=== PATIENT | female | born 1945 | race Caucasian/White ===

== ENCOUNTER 2018-11-02 13:05 | Inpatient (IN) | payer MEDICARE, MEDICAID ==
--- NOTE | 2018-11-02 13:52 | ED Physician Chart ---
ED Chief Complaint/HPI - Patient Information Date Seen:: 11/02/18 Time Seen:: 13:39 Chief Complaint:: PSYCHOSIS History of Present Illness:: THIS IS A 73 YO FEMALE SENT FROM THE [facility] FOR EVALUATION AND TREATMENT WITH A NEED FOR PSYCH CARE. Vitals:: Vital Signs - 8 hr 11/02/18 13:19 Temp 98.4 F HR 90 RR 16 BP 124/54 O2 Sat % 95 Historian:: Medical Records Review:: Nurse's Note Reviewed, Transfer documents Reviewed ED Review of Systems - Review of Systems General/Constitutional: No fever, No chills, No weight loss, No weakness, No diaphoresis, No edema, No loss of appetite, Other (THIS PATIENT IS UNABLE TO GIVE A REVIEW OF SYSTEMS.) Skin: No skin lesions, No rash, No bruising Head: No headache, No light-headedness Eyes: No loss of vision, No pain, No diplopia ENT: No earache, No nasal drainage, No sore throat, No tinnitus Neck: No neck pain, No swelling, No thyromegaly, No stiffness, No mass noted Cardio Vascular: No chest pain, No palpitations, No PND, No orthopnea, No edema Pulmonary: No SOB, No cough, No sputum, No wheezing GI: No nausea, No vomiting, No diarrhea, No pain, No melena, No hematochezia, No constipation, No hematemesis G/U: No dysuria, No frequency, No hematuria Musculoskeletal: No bone or joint pain, No back pain, No muscle pain Endocrine: No polyuria, No polydipsia Psychiatric: No prior psych history, No depression, No anxiety, No suicidal ideation Hematopoietic: No bruising, No lymphadenopathy Allergic/Immuno: No urticaria, No angioedema Neurological: No syncope, No focal symptoms, No weakness, No paresthesia, No headache, No seizure, No dizziness, No confusion, No vertigo ED Past Medical History - Past Medical History Obtainable: Yes Past Medical History: Dementia Family History: None Social History: Non Smoker, No Alcohol, No Drug Use, Care Facility Surgical History: None Psychiatricy History: Schizophrenia, Dementia Family Medical History - Family Member Mother History Unknown: Yes ED Physical Exam - Physical Examination General/Constitutional: Awake, Well-developed, well-nourished, Alert, No distress, GCS 15, Non-toxic appearing, Ambulatory Head: Atraumatic Eyes: Lids, conjuctiva normal, PERRL, EOMI Skin: Nl inspection, No rash, No skin lesions, No ecchymosis, Well hydrated, No lymphadenopathy ENMT: External ears, nose nl, Nasal exam nl, Lips, teeth, gums nl Neck: Nontender, Full ROM w/o pain, No JVD, No nuchal rigidity, No bruit, No mass, No stridor Respiratory: Nl effort/Exclusion, Clear to Auscultation, No Wheeze/Rhonchi/Rales Cardio Vascular: RRR, No murmur, gallop, rubs, NL S1 S2 GI: No tenderness/rebounding/guarding, No organomegaly, No hernia, Normal BS's, Nondistended, No mass/bruits, No McBurney tenderness : No CVA tenderness Extremities: No tenderness or effusion, Full ROM, normal strength in all extremities, No edema, Normal digits & nails Neuro/Psych: Alert/oriented, DTR's symmetric, Normal sensory exam, Normal motor strength, Judgement/insight normal (POOR INSIGHT AND JUDGEMENT), Mood normal, Normal gait, No focal deficits Misc: Normal back, No paraspinal tenderness ED Labs/Radiology/EKG Results - Lab Results Results: Laboratory Results - last 24 hr 11/02/18 11/02/18 11/02/18 13:35 13:35 13:35 WBC 8.7 RBC 3.72 L Hgb 11.5 L Hct 35.0 L MCV 93.9 MCH 30.8 MCHC Differential 32.8 RDW 12.9 Plt Count 173 MPV 7.8 Neutrophils % 67.5 Lymphocytes % 19.1 L Monocytes % 10.4 H Eosinophils % 2.3 Basophils % 0.7 PT 12.1 H INR 1.17 Sodium 137 Potassium 4.5 Chloride 104 Carbon Dioxide 24.2 Anion Gap 13.3 BUN 42 H Creatinine 1.4 H Est GFR ( Amer) TNP Est GFR (Non-Af Amer) TNP BUN/Creatinine Ratio 30.0 Glucose 95 Calcium 9.1 Total Bilirubin 0.3 AST 22 ALT 14 Alkaline Phosphatase 68 Troponin I Total Protein 6.3 Albumin 3.8 Globulin 2.5 Albumin/Globulin Ratio 1.5 11/02/18 13:35 WBC RBC Hgb Hct MCV MCH MCHC Differential RDW Plt Count MPV Neutrophils % Lymphocytes % Monocytes % Eosinophils % Basophils % PT INR Sodium Potassium Chloride Carbon Dioxide Anion Gap BUN Creatinine Est GFR ( Amer) Est GFR (Non-Af Amer) BUN/Creatinine Ratio Glucose Calcium Total Bilirubin AST ALT Alkaline Phosphatase Troponin I 0.02 Total Protein Albumin Globulin Albumin/Globulin Ratio - Radiology Results Results: CHEST X-RAY = NAD - EKG Interpretations EKG Time:: 13:39 Rate & Rhythm: RATE = 71, Cook: RIGHT AXIS ED Assessment - Assessment General Assessment: PSYCHOSIS ED Septic Shock - . Is Septic Shock (SBP<90, OR Lactate>4 mmol\L) present?: No - <6hrs of presentation: Vital Signs: Vital Signs - 8 hr 12/15/18 13:19 Temp 98.4 F HR 90 RR 16 BP 124/54 O2 Sat % 95 ED Reassessment (Disposition) - Reassessment Reassessment Condition:: Unchanged - Diagnosis Diagnosis:: PSYCHOSIS - Patient Disposition Discharge/Transfer:: Acute Care w/in this hosp Admitting Medical Physician:: Felicita Barnett Admitting Psych Physician:: Santy Griggs Condition at Disposition:: Stable
[2018-11-02 13:56] LABS: % BASOPHILS 0.7 % (0.0-2.0); % EOSINOPHILS 2.3 % (0.0-5.0); % LYMPHOCYTES 19.1 % (20.0-50.0); % MONOCYTES 10.4 % (2.0-10.0); % NEUTROPHILS 67.5 % (40.0-80.0); BASOPHILE ABSOLUTE 0.1 Th/cumm (0-0.2); EOSINOPHILE ABSOLUTE 0.2 Th/cmm (0.1-0.4); HEMOGLOBIN 11.5 gm/dL (12-16); LYMPHOCYTE ABSOLUTE 1.7 Th/cmm (1.5-3.0); MEAN CELL VOLUME 93.9 fl (81-100); MEAN CORPUSCULAR HEMOGLOBIN 30.8 pg (27.0-31.0); MEAN CORPUSCULAR HGB CONC 32.8 pg (28.0-36.0); MEAN PLATELET VOLUME 7.8 fl; MONOCYTE ABSOLUTE 0.9 Th/cmm (0.3-1.0); NEUTROPHILE ABSOLUTE 5.8 Th/cmm (1.8-8.0); PLATELET COUNT 173 Th/cmm (150-400); RED BLOOD COUNT 3.72 Mil/cmm (3.80-5.20); RED CELL DISTRIBUTION WIDTH 12.9 % (11.5-20.0); WHITE BLOOD COUNT 8.7 Th/cmm (4.8-10.8)
[2018-11-02 14:10] LABS: INR 1.17 (0.5-1.4); PROTHROMBIN TIME (TEST) 12.1 SECONDS (9.5-11.5)
[2018-11-02 14:16] LABS: ALB/GLOB RATIO 1.5 (1.0-1.8); ALBUMIN 3.8 gm/dL (3.7-5.3); ALKALINE PHOSPHATASE 68 U/L (34-104); ANION GAP 13.3 (7.0-16.0); BILIRUBIN,TOTAL 0.3 mg/dL (0.3-1.0); BUN - UREA NITROGEN 42 mg/dL (7-25); CALCIUM SERUM 9.1 mg/dL (8.6-10.3); CARBON DIOXIDE 24.2 mEq/L (21.0-31.0); CHLORIDE 104 mEq/L (98-107); CREATININE - SERUM 1.4 mg/dL (0.6-1.2); GLUCOSE 95 mg/dL (70-105); POTASSIUM SERUM 4.5 mEq/L (3.5-5.1); SGOT 22 U/L (13-39); SGPT/ALT 14 U/L (7-52); SODIUM SERUM 137 mEq/L (136-145); TOTAL PROTEIN,SERUM 6.3 gm/dL (6.0-8.3)
[2018-11-02] MEDS ORDERED: Magnesium Hydroxide (MOM) 30 mL UDC PO PRN (16:01)
[2018-11-02] MEDS ORDERED: Maalox 30 mL Cup PO PRN (16:01)
[2018-11-02 16:47] LABS: CHOLESTEROL 135 mg/dL (<200); HDL -HIGH DENSITY LIPOPROTEIN 50 mg/dL (23-92); TRIGLYCERIDES 118 mg/dL (<150)
--- NOTE | 2018-11-02 17:58 | History & Physical ---
ADMIT DATE: 11/02/2018 CHIEF COMPLAINT: Psychosis. HISTORY OF PRESENT ILLNESS: The patient is a 73-year-old female with a past medical history of possible dementia, psychosis, schizophrenia, brought in from nursing facility for psychosis. The patient was admitted under Dr. Barnett and I was told to do H and P. Otherwise, no new symptoms. PAST MEDICAL HISTORY: Include history of hypertension, hyperlipidemia, schizoaffective disorder, and dementia. FAMILY HISTORY: Not known. SOCIAL HISTORY: No history of smoking. No history of alcohol, no history of drug use. Lives at care facility. ALLERGIES: NKDA. MEDICATIONS: As per medication reconciliation sheet. The patient is receiving Lipitor 10 mg p.o. daily, celecoxib 200 mg p.o. daily, divalproex sodium. REVIEW OF SYSTEMS: GENERAL: The patient has no fever, no chills. HEAD, EYES, EARS, NOSE, AND THROAT: No diplopia, no photophobia. RESPIRATORY: No cough, no shortness of breath. CARDIOVASCULAR: No chest pain or palpitation. GASTROINTESTINAL: No nausea, vomiting or diarrhea. GENITOURINARY: The patient complained of heartburns. Epigastric pain on and off. RESPIRATORY: No dysuria. NEUROLOGIC: No headache, no dizziness, no focal weakness. PSYCHIATRIC: The patient has no suicidal ideation. PHYSICAL EXAMINATION: VITAL SIGNS: Shows temperature is 98 degrees Fahrenheit, pulse 102, respiration is 20, blood pressure 98/58, oxygen saturation 97%. GENERAL: The patient is comfortable lying in the bed, not in acute distress. HEAD, EYES, EARS, NOSE, AND THROAT: Head is normocephalic, atraumatic. Oral cavity moist, pink tongue. Eyes: No pallor, no icterus. PERRLA, EOMI. NECK: Supple, no JVD, no bruit. Trachea in midline. CHEST: Bilateral breath sounds. No crackles, no wheezing. HEART: S1, S2 within normal limits. Regular rhythm. No murmur or gallop. ABDOMEN: Soft, nontender, nondistended. Bowel sounds present. EXTREMITIES: No cyanosis, no clubbing, no edema. NEUROLOGICAL: Alert, awake, oriented x3. LABORATORY DATA: Current lab shows WBC count is 8700, hemoglobin 9.5, hematocrit is 35.0, and platelets are 178,000. INR 1.17, sodium 137, potassium 4.5, chloride 104, bicarbonate is 24, BUN is 42, and creatinine 1.4, glucose is 95. IMPRESSION: 1. Gastroesophageal reflux disease, and may have gastritis. 2. Psychosis. 3. Hypertension. 4. Hyperlipidemia. Recommend check a lipid profile and continue home medications. 5. Azotemia. RECOMMENDATIONS: Start home medication, Protonix or Prevacid orally. [facility]# [id number] [facility]
[2018-11-02] MEDS: Atorvastatin Calcium 10 MG TAB PO SCH (20:46)
[2018-11-03] MEDS: Pantoprazole 40 mg/Packet PO SCH (07:01)
[2018-11-03] MEDS ORDERED: Non-Formulary Item 1 EA (Sertraline Hcl [Zoloft] 100 MG) PO SCH (09:00)
[2018-11-03] MEDS: Multivitamin Tab PO SCH (09:16)
--- NOTE | 2018-11-03 09:59 | Diagnostic Imaging Report ---
CHEST X-RAY: AP view INDICATION: Cough COMPARISON: None FINDINGS: Chronic lung changes are noted with no focal consolidation or effusions. There is nodularity of the left mid lung zone measuring up to 6 mm. Heart size is normal. Atherosclerosis is noted. Degenerative changes are noted with mild scoliosis. IMPRESSION: No focal consolidation identified Nodularity of the left midlung zone measuring up to 6 mm. These findings may represent granulomas. Correlation with old exams is recommended. Alternatively, if no old exams are available, follow-up CT chest is recommended for further assessment Atherosclerotic vascular disease.
[2018-11-03] MEDS: Atorvastatin Calcium 10 MG TAB PO SCH (20:00)
--- NOTE | 2018-11-03 21:10 | Psychiatric Evaluation ---
DATE OF SERVICE: 11/02/2018 IDENTIFYING DATA: The patient is a 73-year-old woman, resident of [facility]. Information obtained by directly interviewing the patient as well as reviewing the admission papers and they are reliable. JUSTIFICATION OF HOSPITALIZATION: The patient is admitted here on a voluntary basis in view of her acute psychosis and mood swings. CHIEF COMPLAINT: "I am seeing things which are not true." HISTORY OF PRESENT ILLNESS: This is the first psychiatric hospitalization to [facility] for this patient who is reported to have been screaming and yelling and has been getting easily agitated. Prior to the hospitalization, the patient has been on Zoloft, Seroquel, Ativan, and the patient is reported to have not been responding to these and the patient has been trying to AWOL from the facility and hence the patient has been to be brought over here for stabilization. PAST PSYCHIATRIC HISTORY: Details are not known. MEDICAL HISTORY: Physical examination is requested to be done by Dr. Barnett. SUBSTANCE ABUSE HISTORY: None. PHYSICAL OR SEXUAL ABUSE HISTORY: None. LEGAL PROBLEMS: None at this time. MENTAL STATUS EXAMINATION: The patient is a 73-year-old woman looking her stated age, moderately obese, superficially cooperative. Eye contact is noted to be fair. Mood is noted to be irritable. Affect is constricted. The patient is paranoid. The patient is actively responding to internal stimuli. The patient is noted to be impulsive and has been trying to walk out of the facility. The patient's attention span and concentration are noted to be poor. The patient has short-term memory deficits, but long-term memory seems to be fair. The patient has no insight into her illness and the patient is not able to anticipate the outcomes of her impulsive behavior. The patient, however, is willing to comply with the treatment. The patient's behavior is a clear danger to self at this time. DIAGNOSTIC IMPRESSION: AXIS I: Schizoaffective disorder. AXIS II: None. AXIS III: As per Dr. Barnett. IMMEDIATE TREATMENT PLAN: The patient is going to be observed on the inpatient unit, provided with supportive psychotherapy. The patient is going to be continued with the valproic acid, which the patient has been getting 250 mg twice a day and the patient is going to be continued on the Seroquel at 100 mg twice a day. With these medications, the patient is going to be observed and once stabilized, the patient is going to be discharged to self to be followed up on an outpatient basis. [facility]# [id number]
--- NOTE | 2018-11-04 02:24 | Progress Notes ---
DATE: 11/03/2018 SUBJECTIVE: The patient lying in the bed. Not in acute distress. No fever, no chills. OBJECTIVE: VITAL SIGNS: Current vital signs shows temperature is 98 degrees Fahrenheit, pulse 64, respirations 19, blood pressure 137/60. GENERAL: The patient is comfortable lying in bed, not in acute distress. HEENT: Head is normocephalic, atraumatic. Oral cavity moist, pink tongue. NECK: Supple. No NVD. No bruit. Trachea in midline. CHEST: Bilateral breath sounds. No crackles or wheezing. HEART: S1, S2 within normal limits. Regular rhythm. No murmur, no gallop. ABDOMEN: Soft, nontender, nondistended. Bowel sounds present. EXTREMITIES: No cyanosis, no clubbing, no edema. NEUROLOGIC: Alert, awake. CURRENT LABORATORY DATA: Shows WBC count 8700, hemoglobin 11.5, platelets are 173,000. Creatinine 1.4. Chest x-ray showed nodularity of the left mid lung measuring up to [address] scan of the chest were recommended. IMPRESSION: 1. Agitation. 2. Gastroesophageal reflux disease. 3. Psychosis. 4. Hypertension. 5. Hyperlipidemia. 6. Azotemia. 7. Lung nodule. PLAN: CT scan of chest JOB# [id number] MTDD
[2018-11-04] MEDS: Pantoprazole 40 mg/Packet PO SCH (06:39)
[2018-11-04] MEDS: Multivitamin Tab PO SCH (09:44)
--- NOTE | 2018-11-04 14:13 | Diagnostic Imaging Report ---
CT scan of the chest without intravenous contrast HISTORY: Mass. Total DLP equals 285 CTDI equals 7.6 Axial sections were obtained from a level above the clavicles down to level below the diaphragm. The overall heart size appears normal. Severe coronary artery and atherosclerotic vascular calcification noted. Normal-sized lymph nodes are seen within the mediastinum. Evaluation of the hilar structures limited due to the absence of intravenous contrast. No definite abnormal masses. No pleural fluid. No abnormal pulmonary parenchymal processes are seen. Specifically, no abnormal pulmonary nodules are identified. Limited sections below the diaphragm demonstrates an approximate 6.0 cm suprarenal mass with several punctate calcifications. This may be related to the right adrenal gland. Neoplasm cannot be excluded. A dedicated CT scan of the abdomen with intravenous contrast and adrenal protocol recommended for further assessment and evaluation. Degenerative changes seen through the spine. IMPRESSION: 1. No abnormal pulmonary masses 2. Approximate 6.0 cm right suprarenal mass. This may be related the adrenal gland. Neoplasm cannot be excluded. A dedicated CT scan of the abdomen with and without intravenous contrast (renal protocol) recommended for further assessment and evaluation. 3. Evidence of severe coronary artery and atherosclerotic vascular disease
--- NOTE | 2018-11-04 19:11 | Consultation ---
DATE OF CONSULTATION: 11/04/2018 REFERRING PHYSICIAN: Rafiq Lombardi M.D. TYPE OF CONSULTATION: Psychology. HISTORY OF PRESENT ILLNESS: The patient is a 73-year-old female. The patient is a resident of [facility]. The following is by record review and by the patient's self-report. The patient is being admitted due to acute psychosis as well as increased mood swings and mood fluctuation. Upon interview, the patient states that she believes she sees things that are not true or are not real. The staff at the patient's facility report of the patient having screaming and yelling episodes as well as getting easily agitated. The patient denied any suicidal ideation or any homicidal ideation, plan or intention. PAST MEDICAL HISTORY: Please see history and physical by Dr. Barnett. PAST PSYCHIATRIC HISTORY: Records are unavailable. Details are unknown. SUBSTANCE ABUSE HISTORY: The patient did not answer these questions. PSYCHOSOCIAL HISTORY: The patient did not answer questions about occupational or educational history or denominational affiliation. The patient did not answer questions about any history of physical or sexual abuse or current legal problems. The patient states no family involved in her care. However, records indicate otherwise. MENTAL STATUS EXAMINATION: The patient appears to be her stated age. The patient's attitude is superficially cooperative. Eye contact is fair. Speech is spontaneous. The patient appears to be moderately obese. Mood is irritable. Affect is constricted. Thought process is highly distractible. The patient appears to be responding to internal stimuli. There is some evidence of paranoid ideation. The patient did not answer questions about having suicidal ideation, plans or intentions. The patient's behavior has been difficult to redirect on the unit. Impulse control is poor. The patient has been trying to walk out of the facility. Concentration is poor. Immediate and short term memory appeared to be impaired. Long-term memory seems to be grossly intact. The patient did not participate in interpretation of proverbs. Sensorium is alert and oriented to person and place. The patient seems not to have any insight into her illness. The patient was unable to verbally contract for safety. Insight is impaired. Judgment is impaired. DIAGNOSTIC IMPRESSION: AXIS I: Schizoaffective disorder. AXIS II: Deferred. AXIS III: Per Dr. Barnett. TREATMENT PLAN: The patient has been seen by Dr. Lombardi for psychiatric evaluation and for the management of the patient's psychotropic medications. We will provide supportive psychotherapy to include reality orientation, differentiation and integration. We will provide a de-escalation to assist in reducing the patient's mood instability and fluctuations. We will provide cognitive and behavioral redirection to assist the patient in increasing her impulse control. We will encourage the patient to demonstrate emotional and self-regulation prior to her discharge. We will provide daily opportunities for the patient to verbally contract for safety. We will provide coping strategies for phase of life issues as well as for chronic severe mental illness. We will continue to provide supportive therapy throughout the patient's hospital stay. Thank you, Dr. Lombardi for this consult and the opportunity to participate in this patient's care. JOB# [id number] MTDDorcas
[2018-11-04] MEDS: Atorvastatin Calcium 10 MG TAB PO SCH (20:08)
--- NOTE | 2018-11-05 00:09 | Progress Notes ---
DATE: 11/04/2018 PSYCHIATRIC PROGRESS NOTE SUBJECTIVE: Staff was spoken to. The patient is interviewed. Mood is noted to be irritable. Affect is constricted. Coping skills are noted to be still poor. The patient continues to be very paranoid. The patient is getting easily agitated. Currently, the patient is on Seroquel 100 mg twice a day and has been able to tolerate the medication. The patient is also on Depakote for her acute mood swings. ASSESSMENT: The patient is still impulsive. PLAN: To continue the patient with the supportive therapy, encouraged the patient to verbalize the concerns rather than to act out. JOB# [id number]
[2018-11-05] MEDS: Pantoprazole 40 mg/Packet PO SCH (06:49)
[2018-11-05] MEDS: Multivitamin Tab PO SCH (08:45)
[2018-11-05] MEDS: Atorvastatin Calcium 10 MG TAB PO SCH (20:31)
--- NOTE | 2018-11-06 01:51 | Progress Notes ---
DATE: 11/05/2018 SUBJECTIVE: Staff was spoken to. The patient is interviewed. Mood is noted to be irritable. Affect is constricted. Insight and judgment at this time are noted to be still impaired. Impulse control is noted to be poor. Coping skills are noted to be very poor. The patient has been having difficult time to cope with the stress, continues to be very paranoid. The patient is currently on Seroquel 100 mg twice a day. The patient's hemoglobin and hematocrit are coming low and the patient's BUN and creatinine are noted to be high creatinine at 1.4 and BUN at 42. ASSESSMENT: The patient is still paranoid. PLAN: To continue the patient with supportive therapy, encouraged the patient to verbalize the concerns rather than to act out. JOB# [id number]
--- NOTE | 2018-11-06 04:16 | Progress Notes ---
DATE: 11/05/2018 SUBJECTIVE: The patient lying in the bed. Not in acute distress. No fever, no chills. OBJECTIVE: VITAL SIGNS: Shows temperature is 97.6, pulse 71, respirations 20, blood pressure 137/64. GENERAL: The patient is comfortable lying in the bed, not in acute distress. HEENT: Head is normocephalic, atraumatic. Oral cavity moist, pink tongue. Eyes: No pallor, no icterus. Pupils PERRLA, EOMI. NECK: Supple, no JVD, no carotid bruit. Trachea in midline. CHEST: Bilateral breath sounds. No crackles or wheezing. HEART: S1, S2 within normal limits. Regular rhythm. No murmur, no gallop. ABDOMEN: Soft, nontender, nondistended. Bowel sounds present. EXTREMITIES: No cyanosis, no clubbing, no edema. NEUROLOGIC: Alert, awake, oriented x 3. No focal deficit. LABORATORY DATA: Current lab shows WBC count is 8700. CT scan of the chest suggested no active lung disease. There is 6 cm right ____ directed. Neoplasm cannot be excluded. CT scan was recommended. ASSESSMENT: 1. Renal mass. 2. Agitation. 3. Gastroesophageal reflux disease. 4. Psychosis. 5. Hypertension. 6. Hyperlipidemia. 7. Azotemia. RECOMMENDATION: Check CT scan of the abdomen and pelvis. JOB# [id number]
[2018-11-06] MEDS: Pantoprazole 40 mg/Packet PO SCH (06:32)
[2018-11-06] MEDS: Multivitamin Tab PO SCH (08:55)
[2018-11-06 12:19] LABS: ALB/GLOB RATIO 1.6 (1.0-1.8); ALBUMIN 3.8 gm/dL (3.7-5.3); ALKALINE PHOSPHATASE 72 U/L (34-104); ANION GAP 12.5 (7.0-16.0); BILIRUBIN,TOTAL 0.3 mg/dL (0.3-1.0); BUN - UREA NITROGEN 44 mg/dL (7-25); CALCIUM SERUM 9.3 mg/dL (8.6-10.3); CARBON DIOXIDE 26.2 mEq/L (21.0-31.0); CHLORIDE 104 mEq/L (98-107); GLUCOSE 101 mg/dL (70-105); POTASSIUM SERUM 4.7 mEq/L (3.5-5.1); SGOT 18 U/L (13-39); SGPT/ALT 11 U/L (7-52); SODIUM SERUM 138 mEq/L (136-145); TOTAL PROTEIN,SERUM 6.2 gm/dL (6.0-8.3)
--- NOTE | 2018-11-06 14:26 | Infectious Disease Prog Note ---
Infectious Disease Subjective - Review of Systems Service Date: 11/06/18 Subjective: There is no new change, no fever. Infectious Disease Objective - Results Result Diagrams: 11/02/18 13:35 11/06/18 11:38 Recent Labs: Laboratory Last Values WBC 8.7 Th/cmm (4.8-10.8) 11/02/18 13:35 RBC 3.72 Mil/cmm (3.80-5.20) L 11/02/18 13:35 Hgb 11.5 gm/dL (12-16) L 11/02/18 13:35 Hct 35.0 % (41.0-60) L 11/02/18 13:35 MCV 93.9 fl (81-100) 11/02/18 13:35 MCH 30.8 pg (27.0-31.0) 11/02/18 13:35 MCHC Differential 32.8 pg (28.0-36.0) 11/02/18 13:35 RDW 12.9 % (11.5-20.0) 11/02/18 13:35 Plt Count 173 Th/cmm (150-400) 11/02/18 13:35 MPV 7.8 fl 11/02/18 13:35 Neutrophils % 67.5 % (40.0-80.0) 11/02/18 13:35 Lymphocytes % 19.1 % (20.0-50.0) L 11/02/18 13:35 Monocytes % 10.4 % (2.0-10.0) H 11/02/18 13:35 Eosinophils % 2.3 % (0.0-5.0) 11/02/18 13:35 Basophils % 0.7 % (0.0-2.0) 11/02/18 13:35 PT 12.1 SECONDS (9.5-11.5) H 11/02/18 13:35 INR 1.17 (0.5-1.4) 11/02/18 13:35 Sodium 138 mEq/L (136-145) 11/06/18 11:38 Potassium 4.7 mEq/L (3.5-5.1) 11/06/18 11:38 Chloride 104 mEq/L (98-107) 11/06/18 11:38 Carbon Dioxide 26.2 mEq/L (21.0-31.0) 11/06/18 11:38 Anion Gap 12.5 (7.0-16.0) 11/06/18 11:38 BUN 44 mg/dL (7-25) H 11/06/18 11:38 Creatinine 1.0 mg/dL (0.6-1.2) 11/06/18 11:38 Est GFR ( Amer) TNP 11/06/18 11:38 Est GFR (Non-Af Amer) TNP 11/06/18 11:38 BUN/Creatinine Ratio 44.0 11/06/18 11:38 Glucose 101 mg/dL (70-105) 11/06/18 11:38 Calcium 9.3 mg/dL (8.6-10.3) 11/06/18 11:38 Total Bilirubin 0.3 mg/dL (0.3-1.0) 11/06/18 11:38 AST 18 U/L (13-39) 11/06/18 11:38 ALT 11 U/L (7-52) 11/06/18 11:38 Alkaline Phosphatase 72 U/L (34-104) 11/06/18 11:38 Troponin I 0.02 ng/mL (0.01-0.05) 11/02/18 13:35 Total Protein 6.2 gm/dL (6.0-8.3) 11/06/18 11:38 Albumin 3.8 gm/dL (3.7-5.3) 11/06/18 11:38 Globulin 2.4 gm/dL 11/06/18 11:38 Albumin/Globulin Ratio 1.6 (1.0-1.8) 11/06/18 11:38 Triglycerides 118 mg/dL (<150) 11/02/18 16:04 Cholesterol 135 mg/dL (<200) 11/02/18 16:04 LDL Cholesterol Direct 62 mg/dL (75-193) L 11/02/18 16:04 HDL Cholesterol 50 mg/dL (23-92) 11/02/18 16:04 Vitamin B12 623 pg/mL (232-1245) 11/04/18 06:40 TSH 2.05 uIU/ml (0.34-5.60) 11/02/18 13:35 RPR NONREACTIVE (NONREACTIVE) 12/17/18 06:40 HIV 1&2 Antibody Screen Non Reactive (Non Reactive) 11/04/18 06:40 - Physical Exam Vitals and I&O: Vital Signs Temp 97.6 F 11/05/18 16:15 Pulse 60 11/06/18 08:52 Resp 20 11/05/18 16:15 BP 123/58 11/06/18 08:52 Pulse Ox 95 11/05/18 16:15 Active Medications: Current Medications Acetaminophen (Tylenol) 650 mg PO Q4HR PRN PRN Reason: Mild Pain / Temp above 100 Stop: 01/01/19 16:00 Al Hydrox/Mg Hydrox/Simethicone (Maalox) 30 ml PO Q4HR PRN PRN Reason: GI DISTRESS Stop: 01/01/19 16:00 Atorvastatin Calcium (Lipitor) 10 mg PO HS [facility]; Protocol Stop: 01/01/19 20:59 Last Admin: 11/05/18 20:31 Dose: 10 mg Celecoxib (Celebrex) 200 mg PO DAILY [facility] Stop: 01/02/19 08:59 Last Admin: 11/06/18 08:56 Dose: 200 mg Divalproex Sodium (Depakote Er) 250 mg PO BID [facility]; Protocol Stop: 01/02/19 08:59 Last Admin: 11/06/18 08:56 Dose: 250 mg Hydralazine HCl (Apresoline) 50 mg PO Q4H PRN PRN Reason: [id number] Stop: 01/01/19 17:29 Lorazepam (Ativan) 0.5 mg PO Q4HR PRN; Protocol PRN Reason: Anxiety Stop: 01/01/19 17:11 Magnesium Hydroxide (Milk Of Magnesia) 30 ml PO HS PRN PRN Reason: Constipation Metoprolol Succinate (Toprol Xl) 25 mg PO DAILY [facility] Stop: 01/02/19 08:59 Last Admin: 11/06/18 08:52 Dose: 25 mg Multivitamins/Vitamin C (Theragran) 1 tab PO DAILY [facility] Stop: 01/02/19 08:59 Last Admin: 11/06/18 08:55 Dose: 1 tab Pantoprazole Sodium (Protonix) 40 mg PO QDAC [facility] Stop: 01/02/19 07:29 Last Admin: 11/06/18 06:32 Dose: 40 mg Quetiapine Fumarate (Seroquel) 100 mg PO BID [facility]; Protocol Stop: 01/02/19 08:59 Last Admin: 11/06/18 08:55 Dose: 100 mg Zolpidem Tartrate (Ambien) 5 mg PO HSMR1 PRN PRN Reason: Insomnia Stop: 01/01/19 16:00 Last Admin: 11/04/18 20:08 Dose: 5 mg General: no acute distress, well developed, well nourished HEENT: atraumatic, normocephalic, PERRLA Neck: supple, no thyromegaly Cardiovascular: S1S2, regular Lungs: clear to auscultation bilaterally, clear to percussion Abdomen: soft, no tender, no distended Extremities: no cyanosis, no clubbing, no edema Neurological: awake, alert Skin: intact Infectious Disease Assmt/Plan - Assessment Assessment: 1. Agitation. 2. Depression. 3. Hypothyroidism. 4. Hyperlipidemia. 5. Cerebral palsy. 6. Pneumonia. 7. Multiple surgeries, likely bilateral hip surgeries and heel surgeries. - Plan Plan: Continue the same treatment plan. Check CT scan abdomen and pelvis. Urology consult for renal mass.
[2018-11-06] MEDS: Atorvastatin Calcium 10 MG TAB PO SCH (20:53)
--- NOTE | 2018-11-07 02:40 | Progress Notes ---
DATE: 11/06/2018 SUBJECTIVE: Staff was spoken to. The patient is interviewed. Mood is noted to be irritable. Affect is constricted. The patient has been very paranoid and has been very tangential. Insight and judgment at this time are noted to be still impaired. Impulse control is noted to be limited. Coping skills also to be limited. The patient's BUN is noted to be very high and it has been referred to the primary care physician for the review. The patient is currently on Depakote 250 mg twice a day and Seroquel 100 mg b.i.d. for her psychosis. The patient is able to tolerate the medications. No side effects to medications are noted. ASSESSMENT: The patient is still psychotic. PLAN: To continue the patient with the supportive therapy and current medications and followup. JOB# [id number]
[2018-11-07] MEDS: Pantoprazole 40 mg/Packet PO SCH (06:39)
[2018-11-07] MEDS: Multivitamin Tab PO SCH (09:00)
--- NOTE | 2018-11-07 09:07 | Diagnostic Imaging Report ---
CT scan abdomen without intravenous contrast HISTORY: Mass. Total DLP equals 373 CTDI equals 12.0 Axial sections were obtained from the xiphoid process down to the iliac crests. The liver exhibits a homogeneous parenchyma. No focal lesions. The spleen appears normal. No abnormality seen in the region of the pancreas. As noted on a prior CT chest report of 11/04/2018, there is noted in approximate 6.4 cm well-circumscribed round solid mass within the right suprarenal region probably originating from the right adrenal gland. Small calcifications noted. Findings consistent with a neoplastic etiology. A three-phase CT scan with adrenal protocol would provide additional characterization. No focal renal lesions. No hydronephrosis. Vascular calcification noted in the renal artery areas. Extensive atherosclerotic calcination noted throughout the abdominal aorta and major branches. IMPRESSION: 1. Right adrenal mass. Findings consistent with a neoplastic etiology. A three-phase CT scan with adrenal protocol recommended for further characterization and assessment. 2. Extensive atherosclerotic vascular changes
--- NOTE | 2018-11-07 13:54 | Infectious Disease Prog Note ---
Infectious Disease Subjective - Review of Systems Service Date: 11/07/18 Subjective: There is no new change, no fever. Infectious Disease Objective - Results Result Diagrams: 11/02/18 13:35 11/06/18 11:38 Recent Labs: Laboratory Last Values WBC 8.7 Th/cmm (4.8-10.8) 11/02/18 13:35 RBC 3.72 Mil/cmm (3.80-5.20) L 11/02/18 13:35 Hgb 11.5 gm/dL (12-16) L 11/02/18 13:35 Hct 35.0 % (41.0-60) L 11/02/18 13:35 MCV 93.9 fl (81-100) 11/02/18 13:35 MCH 30.8 pg (27.0-31.0) 11/02/18 13:35 MCHC Differential 32.8 pg (28.0-36.0) 11/02/18 13:35 RDW 12.9 % (11.5-20.0) 11/02/18 13:35 Plt Count 173 Th/cmm (150-400) 11/02/18 13:35 MPV 7.8 fl 11/02/18 13:35 Neutrophils % 67.5 % (40.0-80.0) 11/02/18 13:35 Lymphocytes % 19.1 % (20.0-50.0) L 11/02/18 13:35 Monocytes % 10.4 % (2.0-10.0) H 11/02/18 13:35 Eosinophils % 2.3 % (0.0-5.0) 11/02/18 13:35 Basophils % 0.7 % (0.0-2.0) 11/02/18 13:35 PT 12.1 SECONDS (9.5-11.5) H 11/02/18 13:35 INR 1.17 (0.5-1.4) 11/02/18 13:35 Sodium 138 mEq/L (136-145) 11/06/18 11:38 Potassium 4.7 mEq/L (3.5-5.1) 11/06/18 11:38 Chloride 104 mEq/L (98-107) 11/06/18 11:38 Carbon Dioxide 26.2 mEq/L (21.0-31.0) 11/06/18 11:38 Anion Gap 12.5 (7.0-16.0) 11/06/18 11:38 BUN 44 mg/dL (7-25) H 11/06/18 11:38 Creatinine 1.0 mg/dL (0.6-1.2) 11/06/18 11:38 Est GFR ( Amer) TNP 11/06/18 11:38 Est GFR (Non-Af Amer) TNP 11/06/18 11:38 BUN/Creatinine Ratio 44.0 11/06/18 11:38 Glucose 101 mg/dL (70-105) 11/06/18 11:38 Calcium 9.3 mg/dL (8.6-10.3) 11/06/18 11:38 Total Bilirubin 0.3 mg/dL (0.3-1.0) 11/06/18 11:38 AST 18 U/L (13-39) 11/06/18 11:38 ALT 11 U/L (7-52) 11/06/18 11:38 Alkaline Phosphatase 72 U/L (34-104) 11/06/18 11:38 Troponin I 0.02 ng/mL (0.01-0.05) 11/02/18 13:35 Total Protein 6.2 gm/dL (6.0-8.3) 11/06/18 11:38 Albumin 3.8 gm/dL (3.7-5.3) 11/06/18 11:38 Globulin 2.4 gm/dL 11/06/18 11:38 Albumin/Globulin Ratio 1.6 (1.0-1.8) 11/06/18 11:38 Triglycerides 118 mg/dL (<150) 11/02/18 16:04 Cholesterol 135 mg/dL (<200) 11/02/18 16:04 LDL Cholesterol Direct 62 mg/dL (75-193) L 11/02/18 16:04 HDL Cholesterol 50 mg/dL (23-92) 11/02/18 16:04 Vitamin B12 623 pg/mL (232-1245) 11/04/18 06:40 TSH 2.05 uIU/ml (0.34-5.60) 11/02/18 13:35 RPR NONREACTIVE (NONREACTIVE) 12/17/18 06:40 HIV 1&2 Antibody Screen Non Reactive (Non Reactive) 11/04/18 06:40 - Physical Exam Vitals and I&O: Vital Signs Temp 98.5 F 11/06/18 20:00 Pulse 89 11/06/18 20:00 Resp 17 11/06/18 20:00 BP 151/74 11/06/18 20:00 Pulse Ox 95 11/06/18 20:00 Intake & Output 11/06/18 11/07/18 11/07/18 18:59 06:59 18:59 Intake Total 240 Balance 240 Intake: Oral 240 Other: # Voids 2 2 # Bowel Movements 0 Active Medications: Current Medications Acetaminophen (Tylenol) 650 mg PO Q4HR PRN PRN Reason: Mild Pain / Temp above 100 Stop: 01/01/19 16:00 Al Hydrox/Mg Hydrox/Simethicone (Maalox) 30 ml PO Q4HR PRN PRN Reason: GI DISTRESS Stop: 01/01/19 16:00 Atorvastatin Calcium (Lipitor) 10 mg PO HS [facility]; Protocol Stop: 01/01/19 20:59 Last Admin: 11/06/18 20:53 Dose: Not Given Celecoxib (Celebrex) 200 mg PO DAILY [facility] Stop: 01/02/19 08:59 Last Admin: 11/07/18 08:59 Dose: Not Given Divalproex Sodium (Depakote Er) 250 mg PO BID [facility]; Protocol Stop: 01/02/19 08:59 Last Admin: 11/07/18 08:59 Dose: Not Given Hydralazine HCl (Apresoline) 50 mg PO Q4H PRN PRN Reason: [id number] Stop: 01/01/19 17:29 Lorazepam (Ativan) 0.5 mg PO Q4HR PRN; Protocol PRN Reason: Anxiety Stop: 01/01/19 17:11 Magnesium Hydroxide (Milk Of Magnesia) 30 ml PO HS PRN PRN Reason: Constipation Metoprolol Succinate (Toprol Xl) 25 mg PO DAILY [facility] Stop: 01/02/19 08:59 Last Admin: 11/07/18 08:59 Dose: Not Given Multivitamins/Vitamin C (Theragran) 1 tab PO DAILY [facility] Stop: 01/02/19 08:59 Last Admin: 11/07/18 09:00 Dose: Not Given Pantoprazole Sodium (Protonix) 40 mg PO QDAC [facility] Stop: 01/02/19 07:29 Last Admin: 11/07/18 06:39 Dose: Not Given Quetiapine Fumarate (Seroquel) 100 mg PO BID [facility]; Protocol Stop: 01/02/19 08:59 Last Admin: 11/07/18 09:00 Dose: Not Given Zolpidem Tartrate (Ambien) 5 mg PO HSMR1 PRN PRN Reason: Insomnia Stop: 01/01/19 16:00 Last Admin: 11/04/18 20:08 Dose: 5 mg General: no acute distress, well developed, well nourished HEENT: atraumatic, normocephalic, PERRLA, EOMI Neck: supple, no thyromegaly Cardiovascular: S1S2, regular Lungs: clear to auscultation bilaterally, clear to percussion Abdomen: soft, no tender, no distended Extremities: no cyanosis, no clubbing, no edema Neurological: awake, alert, oriented Skin: intact Infectious Disease Assmt/Plan - Assessment Assessment: 1. Agitation. 2. Depression. 3. Hypothyroidism. 4. Hyperlipidemia. 5. Cerebral palsy. 6. Pneumonia. 7. Multiple surgeries, likely bilateral hip surgeries and heel surgeries. - Plan Plan: Continue the same treatment plan. Check CT scan abdomen and pelvis. Urology consult for renal mass.
--- NOTE | 2018-11-07 13:58 | Infectious Disease Prog Note ---
Infectious Disease Subjective - Review of Systems Service Date: 11/07/18 Subjective: There is no new change, no fever. Infectious Disease Objective - Results Result Diagrams: 11/02/18 13:35 11/06/18 11:38 Recent Labs: Laboratory Last Values WBC 8.7 Th/cmm (4.8-10.8) 11/02/18 13:35 RBC 3.72 Mil/cmm (3.80-5.20) L 11/02/18 13:35 Hgb 11.5 gm/dL (12-16) L 11/02/18 13:35 Hct 35.0 % (41.0-60) L 11/02/18 13:35 MCV 93.9 fl (81-100) 11/02/18 13:35 MCH 30.8 pg (27.0-31.0) 11/02/18 13:35 MCHC Differential 32.8 pg (28.0-36.0) 11/02/18 13:35 RDW 12.9 % (11.5-20.0) 11/02/18 13:35 Plt Count 173 Th/cmm (150-400) 11/02/18 13:35 MPV 7.8 fl 11/02/18 13:35 Neutrophils % 67.5 % (40.0-80.0) 11/02/18 13:35 Lymphocytes % 19.1 % (20.0-50.0) L 11/02/18 13:35 Monocytes % 10.4 % (2.0-10.0) H 11/02/18 13:35 Eosinophils % 2.3 % (0.0-5.0) 11/02/18 13:35 Basophils % 0.7 % (0.0-2.0) 11/02/18 13:35 PT 12.1 SECONDS (9.5-11.5) H 11/02/18 13:35 INR 1.17 (0.5-1.4) 11/02/18 13:35 Sodium 138 mEq/L (136-145) 11/06/18 11:38 Potassium 4.7 mEq/L (3.5-5.1) 11/06/18 11:38 Chloride 104 mEq/L (98-107) 11/06/18 11:38 Carbon Dioxide 26.2 mEq/L (21.0-31.0) 11/06/18 11:38 Anion Gap 12.5 (7.0-16.0) 11/06/18 11:38 BUN 44 mg/dL (7-25) H 11/06/18 11:38 Creatinine 1.0 mg/dL (0.6-1.2) 11/06/18 11:38 Est GFR ( Amer) TNP 11/06/18 11:38 Est GFR (Non-Af Amer) TNP 11/06/18 11:38 BUN/Creatinine Ratio 44.0 11/06/18 11:38 Glucose 101 mg/dL (70-105) 11/06/18 11:38 Calcium 9.3 mg/dL (8.6-10.3) 11/06/18 11:38 Total Bilirubin 0.3 mg/dL (0.3-1.0) 11/06/18 11:38 AST 18 U/L (13-39) 11/06/18 11:38 ALT 11 U/L (7-52) 11/06/18 11:38 Alkaline Phosphatase 72 U/L (34-104) 11/06/18 11:38 Troponin I 0.02 ng/mL (0.01-0.05) 11/02/18 13:35 Total Protein 6.2 gm/dL (6.0-8.3) 11/06/18 11:38 Albumin 3.8 gm/dL (3.7-5.3) 11/06/18 11:38 Globulin 2.4 gm/dL 11/06/18 11:38 Albumin/Globulin Ratio 1.6 (1.0-1.8) 11/06/18 11:38 Triglycerides 118 mg/dL (<150) 11/02/18 16:04 Cholesterol 135 mg/dL (<200) 11/02/18 16:04 LDL Cholesterol Direct 62 mg/dL (75-193) L 11/02/18 16:04 HDL Cholesterol 50 mg/dL (23-92) 11/02/18 16:04 Vitamin B12 623 pg/mL (232-1245) 11/04/18 06:40 TSH 2.05 uIU/ml (0.34-5.60) 11/02/18 13:35 RPR NONREACTIVE (NONREACTIVE) 12/17/18 06:40 HIV 1&2 Antibody Screen Non Reactive (Non Reactive) 11/04/18 06:40 - Physical Exam Vitals and I&O: Vital Signs Temp 98.5 F 11/06/18 20:00 Pulse 89 11/06/18 20:00 Resp 17 11/06/18 20:00 BP 151/74 11/06/18 20:00 Pulse Ox 95 11/06/18 20:00 Intake & Output 11/06/18 11/07/18 11/07/18 18:59 06:59 18:59 Intake Total 240 Balance 240 Intake: Oral 240 Other: # Voids 2 2 # Bowel Movements 0 Active Medications: Current Medications Acetaminophen (Tylenol) 650 mg PO Q4HR PRN PRN Reason: Mild Pain / Temp above 100 Stop: 01/01/19 16:00 Al Hydrox/Mg Hydrox/Simethicone (Maalox) 30 ml PO Q4HR PRN PRN Reason: GI DISTRESS Stop: 01/01/19 16:00 Atorvastatin Calcium (Lipitor) 10 mg PO HS [facility]; Protocol Stop: 01/01/19 20:59 Last Admin: 11/06/18 20:53 Dose: Not Given Celecoxib (Celebrex) 200 mg PO DAILY [facility] Stop: 01/02/19 08:59 Last Admin: 11/07/18 08:59 Dose: Not Given Divalproex Sodium (Depakote Er) 250 mg PO BID [facility]; Protocol Stop: 01/02/19 08:59 Last Admin: 11/07/18 08:59 Dose: Not Given Hydralazine HCl (Apresoline) 50 mg PO Q4H PRN PRN Reason: [id number] Stop: 01/01/19 17:29 Lorazepam (Ativan) 0.5 mg PO Q4HR PRN; Protocol PRN Reason: Anxiety Stop: 01/01/19 17:11 Magnesium Hydroxide (Milk Of Magnesia) 30 ml PO HS PRN PRN Reason: Constipation Metoprolol Succinate (Toprol Xl) 25 mg PO DAILY [facility] Stop: 01/02/19 08:59 Last Admin: 11/07/18 08:59 Dose: Not Given Multivitamins/Vitamin C (Theragran) 1 tab PO DAILY [facility] Stop: 01/02/19 08:59 Last Admin: 11/07/18 09:00 Dose: Not Given Pantoprazole Sodium (Protonix) 40 mg PO QDAC [facility] Stop: 01/02/19 07:29 Last Admin: 11/07/18 06:39 Dose: Not Given Quetiapine Fumarate (Seroquel) 100 mg PO BID [facility]; Protocol Stop: 01/02/19 08:59 Last Admin: 11/07/18 09:00 Dose: Not Given Zolpidem Tartrate (Ambien) 5 mg PO HSMR1 PRN PRN Reason: Insomnia Stop: 01/01/19 16:00 Last Admin: 11/04/18 20:08 Dose: 5 mg General: no acute distress, well developed, well nourished HEENT: atraumatic, normocephalic, PERRLA, EOMI Neck: supple, no thyromegaly, no lymphadenopathy Cardiovascular: S1S2, regular Lungs: clear to auscultation bilaterally, clear to percussion Abdomen: soft, no tender, no distended Extremities: no cyanosis, no clubbing, no edema Neurological: awake, alert, oriented Skin: intact Infectious Disease Assmt/Plan - Assessment Assessment: 1. Agitation. 2. Depression. 3. Hypothyroidism. 4. Hyperlipidemia. 5. Cerebral palsy. 6. Pneumonia. 7. Multiple surgeries, likely bilateral hip surgeries and heel surgeries. - Plan Plan: Continue the same treatment plan. Check CT scan abdomen and pelvis. Urology consult for renal mass.
[2018-11-07] MEDS: Atorvastatin Calcium 10 MG TAB PO SCH (20:34)
--- NOTE | 2018-11-07 22:36 | Consultation ---
DATE OF CONSULTATION: REASON FOR CONSULTATION: The patient is seen in the psych unit for adrenal mass. HISTORY OF PRESENT ILLNESS: This is a 73-year-old female who was admitted about 5 days ago for evaluation of a psychiatric disorder. During her workup, for some reason, a chest CT was done, which showed an adrenal tumor and this was confirmed on abdominal CT after which Urology consult was requested. The patient gives no history of pain in this area, hematuria, or surgery in the system. She does not have a problem of significant hypertension, although she is on medications and is controlled. MEDICAL HISTORY: Positive for; 1. Hypertension, controlled with medications. 2. Hyperlipidemia, stable. 3. Schizoaffective disorder. 4. Dementia. ALLERGIES: None. PAST SURGICAL HISTORY: Tonsillectomy, appendectomy, and multiple procedures on the legs and hips, details unknown. SOCIAL HISTORY: No smoking, alcohol, or drug use. She lives at a long-term care facility. HOME MEDICATIONS: Lipitor, celecoxib, Depakote, hydralazine, metoprolol, Seroquel, and sertraline. REVIEW OF SYSTEMS: No fever or weight loss. Denied headache or seizures. No chest pain, coughing, or shortness of breath. Denies abdominal pain, vomiting, or diarrhea. No dysuria or hematuria. Denies skin or joint problems. Does have psychiatric disorder emotional problems, and dementia. PHYSICAL EXAMINATION: GENERAL: Healthy looking 73-year-old, awake and alert, in no distress, ambulatory. VITAL SIGNS: Temperature 97.5, heart rate 74, and blood pressure 146/78. No temperature recorded in the hospital. HEAD AND NECK: Normocephalic. Trachea central. Pupils equal and reactive. No jaundice. Thyroid and lymph nodes not palpable. Carotid bruit absent. CHEST: Symmetrical. LUNGS: Clear. No rales or rhonchi. HEART: Sounds normal in sinus rhythm, no murmur. ABDOMEN: Soft, nontender, no organomegaly, mass, or hernia. Flanks nontender to percussion. EXTREMITIES: No edema or lymphadenopathy. NEUROLOGIC: Nonfocal. Moves all 4 limbs. LABORATORY DATA AND DIAGNOSTIC DATA: CT of the abdomen confirmed the renal mass seen on chest CT with dimensions of 6.4 cm well circumcised and solid in the right suprarenal area. Findings are highly suspicious for neoplastic process. There are no stones or hydronephrosis or other abnormalities in the system noted on this study. LABORATORY DATA: White count 8.7, hemoglobin 11.5, and platelets 173. PT, PTT normal. Electrolytes are normal. BUN 44 and creatinine 1.0. HIV antibody is nonreactive. IMPRESSION: 1. Incidental right adrenal mass, solid in appearance. Recommend a 3-phase CT with adrenal protocol to further define it and make a definitive diagnosis if possible. 2. Hypertension, well controlled. 3. Hyperlipidemia, very stable. 4. Dementia, seems to be mild to moderate. 5. Psycho-affective disorder as per psychology and psychiatrist were seeing her. JOB# [id number]
[2018-11-08] MEDS: Pantoprazole 40 mg/Packet PO SCH (06:32)
[2018-11-08] MEDS: Multivitamin Tab PO SCH (09:22)
--- NOTE | 2018-11-08 10:07 | Progress Notes ---
DATE: 11/07/2018 SUBJECTIVE: Staff was spoken to. The patient is interviewed. Mood is noted to be irritable. Affect is constricted. Insight and judgment at this time are noted to be still impaired. Impulse control is very poor. Coping skills are noted to be very poor. The patient continues to be paranoid, but aggressive behavior seems to be coming under control. The patient is currently on Seroquel 100 mg b.i.d. and the valproic acid is given at 250 mg b.i.d. The patient has been able to tolerate. No side effects to the medications are noted. ASSESSMENT: The patient is stabilizing. PLAN: To continue the patient with the supportive therapy, encouraged the patient to verbalize the concerns rather than to act out. [facility]# [id number]
--- NOTE | 2018-11-08 23:47 | Progress Notes ---
DATE: 11/08/2018 UROLOGY FOLLOWUP SUBJECTIVE: The patient was seen earlier this morning with no significant change compared to yesterday. She is still awaiting her adrenal CT, 3-phase. She does not complain of pain in the flanks or hematuria or dysuria. OBJECTIVE: VITAL SIGNS: Temperature is 97.9, heart rate 87, blood pressure 120/56. ABDOMEN: Soft, nondistended. Flanks are nontender. EXTREMITIES: No edema. CARDIOVASCULAR: Heart sounds, no murmur. LABORATORY DATA: There were no labs done today. IMPRESSION: 1. Incidental right adrenal mass, which looks solid on the CT scan, 6.4 cm. Awaiting triphasic study for better definition. She may require a biopsy or exploration depending on the findings. 2. Schizoaffective disorder, no change. 3. History of hypertension, stable. 4. History of dementia. No significant change. [facility]# [id number]
--- NOTE | 2018-11-09 00:03 | Progress Notes ---
DATE: 11/08/2018 SUBJECTIVE: Staff was spoken to. The patient is interviewed. Mood is noted to be less irritable. Affect is appropriate. The patient has paranoia, but denies any command hallucinations. The patient is currently on Depakote and Seroquel and has been able to tolerate the medications. The patient has been pacing on the unit at this time. ASSESSMENT: The patient's psychosis is resolving. PLAN: To continue the patient with the supportive therapy and followup. JOB# [id number]
== END 2018-11-08 16:03 | DRG 885 ==
LOC: ER 13:05 → GERO2 15:05
PROVIDERS: ADMIT Psychiatry & Neurology Psychiatry; ATTEND Psychiatry & Neurology Psychiatry
DX: F25.9 Schizoaffective disorder, unspecified (principal); J18.9 Pneumonia, unspecified organism; F03.91 Unspecified dementia, unspecified severity, with behavioral disturbance; F29 Unspecified psychosis not due to a substance or known physiological condition; I10 Essential (primary) hypertension; E78.5 Hyperlipidemia, unspecified; K21.9 Gastro-esophageal reflux disease without esophagitis; R91.1 Solitary pulmonary nodule; R79.89 Other specified abnormal findings of blood chemistry; G80.9 Cerebral palsy, unspecified; E27.9 Disorder of adrenal gland, unspecified; D35.00 Benign neoplasm of unspecified adrenal gland; Z90.49 Acquired absence of other specified parts of digestive tract
CPT/HCPCS: 36415-UA; 71045-TC; 71250-TC; 74150-TC; 80053-TC; 80061-TC; 82607-90; 83036-90; 84443-TC; 84484-TC; 85025-TC; 85610-TC; 86592-TC; 87389-90; 93005; Z7610